=== PATIENT | female | born 1980 | race African-American/Black ===

== ENCOUNTER 2018-08-05 00:58 | Emergency (ER) | payer BC ==
[2018-08-05] MEDS ORDERED: ALBUTEROL SO4 2.5/IPRATROPIUM 0.5 INH SOL 3 ML VIAL.NEB. NEB ONE (02:08)
--- NOTE | 2018-08-05 02:15 | PDOC ---
History of Present Illness - General Chief Complaint: Chest Pain Stated Complaint: CHEST PAIN SOB Time Seen by Provider: 08/05/18 01:47 History Source: Patient Exam Limitations: No Limitations - History of Present Illness Initial Comments: 08/05/18 02:11 38-year-old female with history of asthma presents with about 1 week of intermittent shortness of breath and now associated chest pain for 2 days. History of mild intermittent asthma last admitted as a child, about one week ago developed some wheezing, had episode of dyspnea on exertion on Wednesday and actually activated EMS, who treated her on scene with nebulizers/magnesium/ steroids and she subsequently refused hospital evaluation, felt better for 2 days but then her exertional dyspnea and wheezing returned. Over the last 2 days , she has had exertional shortness of breath and substernal chest discomfort, last occurring today around 8 PM while climbing 2 flights of stairs. She had to stop and rest before her symptoms went away, presents for evaluation but is essentially asymptomatic now. No fevers or chills or cough, no other URI symptoms, no PE risk factors and no symptoms of DVT. She quit smoking 5 years ago but restarted a few months ago, denies any drug use , denies any personal or family history of heart disease or, embolic disease. Denies any cocaine use or alcohol use, never had a stress test. Past History - Past Medical History Allergies/Adverse Reactions: Allergies Allergy/AdvReac Type Severity Reaction Status Date / Time shellfish derived Allergy Severe Verified 08/05/18 02:27 Home Medications: Ambulatory Orders Azithromycin [Zithromax 250mg Tablets -] 250 mg PO UTDICT #6 tab 08/05/18 Prednisone [Prednisone 50 MG TABLETS] 50 mg PO DAILY #5 tablet 08/05/18 Review of Systems - Review of Systems Constitutional: No: Chills, Fever, Night Sweats HEENTM: No: Nose Congestion, Throat Pain Respiratory: Yes: Cough, SOB with Exertion Cardiac (ROS): Yes: Chest Pain. No: Edema, Lightheadedness, Syncope ABD/GI: No: Nausea, Vomiting Neurological: No: Headache All Other Systems: Reviewed and Negative *Physical Exam - Physical Exam Comments: 08/05/18 02:15 Vital signs within normal limits, O2 sat 99% on room air, heart rate 64 GENERAL: Obese patient awake, alert, and fully oriented, in no acute distress speaking full sentences. No cough or tachypnea. HEAD: Normal with no signs of trauma. EYES: PERRL, EOMI, sclera anicteric, conjunctiva clear with no pallor. ENT: oropharynx clear without exudates. Moist mucous membranes. NECK: Normal range of motion, supple without lymphadenopathy, JVD, or masses. LUNGS: Breath sounds equal, clear to auscultation bilaterally. No wheeze/ crackles auscultated. HEART: Regular rate and rhythm, normal S1 and S2 without murmur or rub. ABDOMEN: Soft/nontender/nondistended. BS wnl. No guarding or rebound. No palpable masses. No hepatosplenomegaly. EXTREMITIES: Normal range of motion, no edema or calf tenderness. 2+ distal pulses. No cords, erythema, or tenderness. NEUROLOGICAL: Cranial nerves II through XII grossly intact. Normal speech, normal gait. PSYCH: Normal mood, normal affect. SKIN: Warm, Dry, no rashes or lesions noted. Heart Score/ECG Review - History History: Slightly suspicious - Electrocardiogram EKG: Normal - Age Age: </= 45 - Risk Factors Based on the list above the patient has:: 1-2 risk factors - Troponin Troponin: </= normal limit - Score Heart Score - Total: 1 #1 ECG reviewed & interpreted by me at: 01:18 General ECG Interpretation: Sinus Rhythm, Normal Rate (53), Normal Intervals ( qtc 418), No acute ischemic changes ED Treatment Course - LABORATORY CBC & Chemistry Diagram: 08/05/18 02:29 08/05/18 02:29 Medical Decision Making - Medical Decision Making 08/05/18 02:30 38y/o F h/o asthma p/w cp/dyspnea on exertion for 2 days in the setting of one week asthma exacerbation incompletely treated with single EMS visit. no evidence of underlying infectious process, low risk and atypical for ACS and PE. suspect asthma exacerbation. labs including trop and ddimer cxr, ekg trial of neb reassess 08/05/18 04:25 wbc 24.5 with 3% bands. did receive single dose of steroid 4d ago, but concerning for infectious process. ddimer, trop negative awaiting cxr 08/05/18 06:27 On my preliminary review of the chest x-ray, there is no focal infiltrate, question increased interstitial markings but no effusion and normal heart. Patient feels much better after nebulizers, ambulating comfortably in the ED and maintaining O2 sats of 100% on room air. no further chest pain, EKG/trop normal. agrees with d/c plan on nebulizers and steroids and abx, has f/u with her dredge operator and already performed PFTs, understands strict return criteria. leukocytosis likely 2/2 recent steroids, will monitor temps. *DC/Admit/Observation/Transfer Diagnosis at time of Disposition: Atypical chest pain Asthma exacerbation Qualifiers: Asthma severity: mild Asthma persistence: intermittent Qualified Code(s): J45.21 - Mild intermittent asthma with (acute) exacerbation - Discharge Dispostion Disposition: HOME Condition at time of disposition: Improved - Prescriptions Prescriptions: Azithromycin [Zithromax 250mg Tablets -] 250 mg PO UTDICT #6 tab Prednisone [Prednisone 50 MG TABLETS] 50 mg PO DAILY #5 tablet - Referrals Referrals: Justin Stovall PA [Primary Care Provider] - - Patient Instructions Printed Discharge Instructions: DI for Asthma -- Adult Additional Instructions: Activity as tolerated. Stay hydrated. Blood tests, an EKG, and a chest x-ray showed no acute abnormalities. Your symptoms are likely due to an asthma exacerbation, take nebulizers at home along with steroids and antibiotics as prescribed. Tylenol 1000 mg every 8 hours and/or ibuprofen 600 mg every 8 hours as needed for pain. Restrict activity as tolerated. Continue your medications as previously prescribed by your physician. You should follow up with your primary doctor and dredge operator as soon as possible regarding today's emergency department visit. Return to the emergency department for any new or concerning symptoms, particularly persistent or worsening chest pain or shortness of breath, fevers or chills, generalized weakness or cough. - Post Discharge Activity
[2018-08-05 02:26] VITALS: BP 137/85; PULSE 50; TEMP 98.3; BMI 36.9
[2018-08-05 02:58] LABS: BASO % 0.1 % (0-2.0); HEMATOCRIT 32.5 % (32.4-45.2); MCH 29.5 pg (25.7-33.7); MCHC 33.9 g/dl (32.0-36.0); MEAN CELL VOLUME 87.2 fl (80-96); MEAN PLT VOLUME 11.1 fl (7.5-11.1); MONO % 7.4 % (3.8-10.2); NEUT % 85.5 % (42.8-82.8); PLATELET COUNT 190 K/MM3 (134-434); RBC 3.73 M/mm3 (3.60-5.2); RDW 14.3 % (11.6-15.6); WHITE BLOOD COUNT 24.5 K/mm3 (4.0-10.0)
[2018-08-05 03:09] LABS: INR 0.96 (0.83-1.09); PROTHROMBIN TIME (PATIENT) 11.3 SEC (9.7-13.0)
[2018-08-05 03:28] LABS: ALBUMIN 3.1 g/dl (3.4-5.0); ALK PHOS 75 U/L (45-117); ANION GAP 9 MMOL/L (8-16); BILIRUBIN,TOTAL 0.3 mg/dL (0.2-1); BLOOD UREA NITROGEN 22 mg/dL (7-18); CHLORIDE 106 mmol/L (98-107); CO2 26 mmol/L (21-32); CREATININE 0.9 mg/dL (0.55-1.3); GLUCOSE,RANDOM 121 mg/dL (74-106); MAGNESIUM 2.1 mg/dL (1.8-2.4); POTASSIUM 3.6 mmol/L (3.5-5.1); SGOT/AST 13 U/L (15-37); SGPT/ALT 19 U/L (13-61); SODIUM 141 mmol/L (136-145); TOT PROT 6.2 g/dl (6.4-8.2)
[2018-08-05 04:34] LABS: HCG,QUALITATIVE URINE Negative
[2018-08-05 04:49] LABS: URINE APPEARANCE CLEAR; URINE BILIRUBIN NEGATIVE (<2.0 mg/dL); URINE COLOR LTYELLOW; URINE GLUCOSE (UA) NEGATIVE (NEGATIVE); URINE KETONE NEGATIVE (NEGATIVE); URINE LEUK ESTERASE NEGATIVE (NEGATIVE); URINE NITRITE NEGATIVE (NEGATIVE); URINE PROTEIN NEGATIVE (NEGATIVE); URINE UROBILINOGEN NEGATIVE mg/dL (0.2-1.0)
[2018-08-05 04:53] LABS: EPI CELLS FEW /HPF (FEW); URINE MUCUS MODERATE
[2018-08-05] MEDS ORDERED: predniSONE 20 MG TABLET (UD) PO ONE (06:33)
[2018-08-05] MEDS ORDERED: AZITHROMYCIN 500 MG TABLET PO ONE (06:33)
[2018-08-05] MEDS ORDERED: AZITHROMYCIN 500 MG TABLET ONE (06:42)
[2018-08-05] MEDS ORDERED: predniSONE 20 MG TABLET (UD) ONE (06:42)
--- NOTE | 2018-08-05 16:01 | EKG ---
Test Reason : Blood Pressure : / mmHG Vent. Rate : 053 BPM Atrial Rate : 053 BPM P-R Int : 178 ms QRS Dur : 088 ms QT Int : 446 ms P-R-T Axes : 066 037 025 degrees QTc Int : 418 ms SINUS BRADYCARDIA OTHERWISE NORMAL ECG NO PREVIOUS ECGS AVAILABLE Confirmed by SHAWN CORTEZ, CHAPARRITA ([id number]) on 08/05/2018 4:00:23 PM Referred By: Confirmed By:CHAPARRITA ESCOBAR MD
== END 2018-08-05 07:07 | disposition home or self-care (01) ==
LOC: JER 00:58
PROC: 3E0F7GC Introduction of Other Therapeutic Substance into Respiratory Tract, Via Natural or Artificial Opening (ICD-10-PCS; principal; 2018-08-05)
DX: R07.9 Chest pain, unspecified (principal); J45.21 Mild intermittent asthma with (acute) exacerbation
CPT/HCPCS: 36415; 71046-TC-FY; 80053; 81003; 81015; 82550; 83735; 84484; 84703; 85025; 85379; 85610; 93005; 93010; 99282-25

== ENCOUNTER 2022-03-10 19:56 | Emergency (ER) | payer BC, OTHER ==
[2022-03-10 20:04] VITALS: BP 159/93; PULSE 72; TEMP 98.7; BMI 38.0
[2022-03-10] MEDS ORDERED: ACETAMINOPHEN 1000 MG/100 ML BAG IVPB ONE (21:25)
[2022-03-10] MEDS ORDERED: ACETAMINOPHEN INJECTION 100 ML IVPB ONE (22:25)
[2022-03-10 22:57] LABS: BASO % 0.5 % (0-2.0); EOS % 1.3 % (0-4.5); HEMATOCRIT 31.1 % (32.4-45.2); LYMPH % 18.5 % (8-40); MCH 25.8 pg (25.7-33.7); MCHC 32.1 g/dl (32.0-36.0); MEAN CELL VOLUME 80.4 fl (80-96); MEAN PLT VOLUME 11.5 fl (7.5-11.1); MONO % 10.2 % (3.8-10.2); NEUT % 69.5 % (42.8-82.8); PLATELET COUNT 219 10^3/uL (134-434); RBC 3.87 M/mm3 (3.60-5.2); RDW 15.3 % (11.6-15.6); WHITE BLOOD COUNT 8.5 K/mm3 (4.0-10.0)
[2022-03-10 23:38] LABS: BLOOD UREA NITROGEN 9.2 mg/dL (7-18); CALCIUM 8.6 mg/dL (8.5-10.1)
[2022-03-10 23:39] LABS: ALBUMIN 3.9 g/dl (3.4-5.0)
[2022-03-10 23:42] LABS: CREATININE 0.8 mg/dL (0.55-1.3)
[2022-03-10 23:43] LABS: BILIRUBIN,TOTAL 0.6 mg/dL (0.2-1); TOT PROT 7.3 g/dl (6.4-8.2)
[2022-03-11] MEDS ORDERED: AMOX TR/POT CLAV 500MG/125MG TABLETS (FP) PO ONE (01:29)
[2022-03-11] MEDS ORDERED: IBUPROFEN 400 MG TABLET (FP) PO ONE ×3 (01:29→01:40)
[2022-03-11] MEDS ORDERED: AMOX TR/POT CLAV 500MG/125MG TABLETS (FP) ONE ×2 (01:36→01:39)
== END 2022-03-11 01:41 | disposition home or self-care (01) ==
LOC: JER 19:56
PROC: 3E033GC Introduction of Other Therapeutic Substance into Peripheral Vein, Percutaneous Approach (ICD-10-PCS; principal; 2022-03-10)
DX: K02.9 Dental caries, unspecified (principal); K08.89 Other specified disorders of teeth and supporting structures
CPT/HCPCS: 36415; 70487-TC; 80053; 84703; 85025; 99285-25